=== PATIENT | female | born 1980 | race Caucasian/White ===

== ENCOUNTER 2018-05-11 20:13 | Emergency (ER) | payer OTHER ==
[~2018-05-11] VITALS: Ht 157.5 cm; Wt 56.0 kg
[2018-05-11 21:27] LABS: BASOPHILS % 0.2 % (0.0-2.0); EOSINOPHILS % 0.3 % (0.0-5.0); HEMATOCRIT. 43.6 % (36.0-48.0); MEAN CORPUSCULAR HEMOGLOBIN 30.1 pg (28.0-32.0); MEAN CORPUSCULAR VOLUME 87.3 fL (81.0-99.0); NEUTROPHILS % 88.5 % (40.0-76.0); PLATELET 335 x1000/uL (130-400); RED BLOOD CELL COUNT 4.99 mill/uL (4.2-5.4); RED CELL DISTRIBUTION WIDTH 12.9 % (11.6-14.6)
[2018-05-11 21:33] LABS: CHLORIDE 105 mEq/L (98-107)
[2018-05-11 21:34] LABS: INR 1.1; PROTHROMBIN TIME 11.4 sec (9.4-11.6)
[2018-05-11 21:36] LABS: HCG SCREEN NEGATIVE
[2018-05-11 23:03] LABS: CLARITY URINE CLOUDY (CLEAR); COLOR URINE YELLOW (YELLOW); KETONES URINE 1+ (NEGATIVE); LEUKOCYTE ESTERASE URINE TRACE (NEGATIVE); NITRITE URINE NEGATIVE (NEGATIVE); OCCULT BLOOD URINE 1+ (NEGATIVE); PH URINE 6.5 (4.5-8.0); PROTEIN URINE NEGATIVE (NEGATIVE); SPECIFIC GRAVITY URINE 1.022 (1.005-1.030)
[2018-05-11] MEDS ORDERED: KETOROLAC 30MG/ML VIAL IV ONE (23:45)
[2018-05-11] MEDS ORDERED: SODIUM CHLORIDE 0.9% 1,000 ML IV ONE (23:45)
[2018-05-12] MEDS ORDERED: LORAZEPAM 0.5MG TABLET PO ONE (00:45)
[2018-05-12 01:38] VITALS: BP 115/75
== END 2018-05-12 03:15 | disposition home or self-care (01) ==
LOC: ER 05-12 03:05
DX: R51 Headache (principal); R07.89 Other chest pain; N39.0 Urinary tract infection, site not specified; R03.0 Elevated blood-pressure reading, without diagnosis of hypertension
CPT/HCPCS: 36415; 71045; 80053; 81003; 83690; 83880; 84484; 84703; 85025; 85610; 93005; 96361; 96374; 99285; J1885; J7030; Z7610